=== PATIENT | male | born 1985 | race Two or more races ===

== ENCOUNTER 2022-10-22 12:06 | Emergency (ER) | payer OTHER ==
[~2022-10-22] VITALS: Ht 177.8 cm; Wt 90.7 kg
[2022-10-22] MEDS ORDERED: DOXYCYCLINE HY100 MG PO (12:43)
[2022-10-22] MEDS ORDERED: BACTRIM 400-801 EACH PO (12:43)
== END 2022-10-22 13:05 | disposition home or self-care (01) ==
LOC: ER 12:13
DX: S61.512A Laceration without foreign body of left wrist, initial encounter (principal); W26.0XXA Contact with knife, initial encounter; Y93.G3 Activity, cooking and baking
CPT/HCPCS: 99283